=== PATIENT | female | born 1995 | race Caucasian/White ===

== ENCOUNTER 2021-06-22 16:17 | Emergency (ER) | payer MEDICAID ==
[~2021-06-22] VITALS: Ht 157.5 cm; Wt 68.0 kg
[2021-06-22 16:41] VITALS: BP 113/77
--- NOTE | 2021-06-22 17:45 | NUR ---
COVID SWAB DONE, SPECIMEN SENT TO LAB.
[2021-06-22] MEDS ORDERED: IBUP-1955 PO (17:59)
[2021-06-22] MEDS ORDERED: AMOX-430 PO (17:59)
== END 2021-06-22 18:09 | disposition home or self-care (01) ==
LOC: ER 16:21
DX: J32.9 Chronic sinusitis, unspecified (principal); R50.9 Fever, unspecified; Z20.822 Contact with and (suspected) exposure to COVID-19
CPT/HCPCS: 99283; C9803; U0003